=== PATIENT | male | born 1985 | race Caucasian/White ===

== ENCOUNTER 2020-06-28 13:28 | Inpatient (IN) | payer OTHER, MEDICAID, SELFPAY ==
[2020-06-28] VITALS (28 sets, daily range): BP systolic 125–182; BP diastolic 58–89; PULSE 97–131; RESP 14–29; TEMP 36.7–36.9; O2SAT 88–100; BMI 23.6; BMI 19.5
[2020-06-28] MEDS: SODIUM CHLORIDE 0.9% 1,000 ML 1000 ML IV (13:52)
--- NOTE | 2020-06-28 14:08 | ED.GENADULT ---
HPI - General Adult General Chief complaint: Diabetic Problem Stated complaint: Hyperglycemia Time Seen by Provider: 06/28/20 13:39 Source: patient and EMS Mode of arrival: EMS Limitations: no limitations History of Present Illness HPI narrative: Patient is a 34-year-old male who is a insulin-dependent diabetic. Has been a diabetic for 30 years. States he did not take his insulin yesterday. When asked why he stated ?I do not know ?and then he stated ?I think I lost it ?patient was unable/unwilling to provide much other HPI. Was vomiting. He kept stating ?what is wrong with me ?. When asked if he had chest pain he stated ?I do not know ?he answered that to most of the questions that I asked him. Related Data Previous Rx's Medication Instructions Recorded chlorhexidine gluconate 0.12 % 15 ml BUCCAL BID #118 ml 06/08/20 mouthwash Allergies Allergy/AdvReac Type Severity Reaction Status Date / Time Penicillins Allergy Severe Swelling Verified 06/08/20 17:11 and itching Review of Systems Review of Systems Narrative: Very limited review of systems secondary to patient's willingness to participate in the HPI. Constitutional Comments: Denies but this was limited ENT Comments: Denies but this is a limited exam Cardiovascular Cardiovascular: Denies chest pain and Denies dyspnea Respiratory Respiratory: Denies dyspnea Gastrointestinal Gastrointestinal: Reports nausea and Reports vomiting Musculoskeletal Comments: Body aches Integumentary/Breasts Comments: Denies but this is a limited exam Neurologic Neurologic: Reports confusion Psychiatric Psychiatric: Reports confusion Hematologic/Lymphatic On Anticoagulants: No Allergic/Immunologic Comments: Denies but this is limited Patient History Medical History Dental infection Diabetes Social History Smoking Status: Current every day smoker Smoking Status: Current every day smoker alcohol intake frequency: 3 or more drinks per day Substance Use Type: does not use Exam Initial Vital Signs Initial Vital Signs: Vital Signs Temperature 98.5 F 06/28/20 13:25 Pulse Rate 107 H 06/28/20 13:25 Respiratory Rate 24 06/28/20 13:25 Blood Pressure 138/74 06/28/20 13:25 Pulse Oximetry 99 06/28/20 13:25 Const General: No cooperative and other (Uncomfortable) Limitations: mental status not altered Other: Disheveled HENMT Head: normal to inspection and normocephalic Eyes General: appearance normal, both eyes and all related structures Chest Chest: No crepitus Resp Effort & Inspection: tachypneic Auscultation: clear to auscultation bilaterally Cardio Rate: tachycardic Rhythm: regular rhythm GI Inspection: non-distended Palpation: soft Skin Lesions: no lesions Rashes: no rashes Neuro General: patient alert, patient awake and moves all extremities Extrem General: normal to inspection, capillary refill normal and No edema Psych Appearance: grossly normal and well kempt Scores GCS [place] coma scale eye opening: Spontaneous [place] coma scale verbal response: Orientated Robert coma scale motor response: Obey commands [place] coma scale total score: 15 Course Orders Ordered: ED Orders 06/28/20 13:36 EKG-12 Lead Stat 06/28/20 14:07 Complete Blood Count AUTO DIFF Stat Comprehensive Metabolic Panel Stat Ethanol (ETOH) Stat Ketones (Beta-Hydroxybutyrate) Stat Magnesium Stat Phosphorous Stat 06/28/20 14:18 Venous Blood Gas Stat 06/28/20 14:22 COVID19 - ADMIT (PANTRY STEWARD/STEWARDESS swab/PCR) Stat 06/28/20 15:13 XR chest 1V Stat 06/28/20 18:02 Urine Drug Screen, Rapid Stat Acetaminophen (Acetaminophen 325 Mg Tablet) 650 mg PO Q6HR PRN PRN Reason: Fever/Mild Pain (1-3) Heparin Sodium (Porcine) (Heparin 5,000 Unit/Ml Vial) 5,000 unit SUBCUT BID SWETA INSULIN DRIP PREMIX (Myxredlin Drip Premix) 100 unit in 100 mls @ 7 mls/hr IV TITRATE SWETA; Protocol Last Admin: 06/28/20 15:32 Dose: 7 ml/hr, 7 mls/hr Documented by: [email or web address] Cosigned by: RICHARD Sodium Chloride (Normal Saline 0.9%) 1,000 mls @ 250 mls/hr IV CONT SWETA Last Admin: 06/28/20 16:24 Dose: 250 mls/hr Documented by: [email or web address] Sodium Chloride (Normal Saline 0.9%) 1,000 mls @ 250 mls/hr IV CONT SWETA Naloxone HCl (Naloxone 0.4 Mg/Ml Vial) 0.2 mg IV Q2MIN PRN PRN Reason: Opiate Reversal Ondansetron HCl (Ondansetron 4 Mg/2 Ml Inj) 4 mg IV Q8HR PRN PRN Reason: Nausea And Vomiting Discontinued Medications Sodium Chloride (Normal Saline 0.9%) 1,000 mls @ 1,000 mls/hr IV BOLUS ONE Stop: 06/28/20 14:39 Last Infusion: 06/28/20 15:23 Dose: 0 mls/hr Documented by: Admin: 06/28/20 13:52 Dose: 1,000 mls/hr Documented by: [email or web address] Lorazepam (Lorazepam 2 Mg/Ml Inj) 1 mg IV NOW ONE Stop: 06/28/20 14:27 Last Admin: 06/28/20 14:33 Dose: 1 mg Documented by: CTREACARMITA Ondansetron HCl (Ondansetron 4 Mg/2 Ml Inj) 4 mg IV NOW ONE Stop: 06/28/20 13:51 Last Admin: 06/28/20 13:53 Dose: Not Given Documented by: CTREACARMITA Ondansetron HCl (Ondansetron 4 Mg/2 Ml Inj) 4 mg IV NOW ONE Stop: 06/28/20 14:09 Last Admin: 06/28/20 14:13 Dose: 4 mg Documented by: BOOGIE Vital Signs Vital signs: Vital Signs - 8 hr 06/28/20 13:25 06/28/20 13:30 06/28/20 14:00 Temperature 98.5 F Pulse Rate 107 H 109 H 114 H Respiratory Rate 24 22 Blood Pressure 138/74 Pulse Oximetry 99 100 06/28/20 14:30 06/28/20 15:00 06/28/20 15:30 Temperature Pulse Rate 113 H 114 H 116 H Respiratory Rate 20 24 17 Blood Pressure Pulse Oximetry 06/28/20 16:00 06/28/20 16:11 Temperature Pulse Rate 114 H 116 H Respiratory Rate 28 H 17 Blood Pressure 170/80 H Pulse Oximetry Medical Decision Making Lab Data Lab results reviewed: Yes I reviewed the patient's lab results. Result diagrams: 06/28/20 14:07 06/28/20 17:21 Labs: Lab Results 06/28/20 06/28/20 06/28/20 Range/Units 14:07 14:07 14:07 WBC 20.4 H (4.5-11.0) X10^3/uL RBC 5.05 (4.5-5.9) X10^6/uL Hgb 16.3 (13.5-17.5) g/dL Hct 49.0 (41-53) % MCV 97.1 (80-100) fL MCH 32.3 (26-34) PG MCHC 33.3 (30-36) % RDW 13.1 (11.6-14.8) % Plt Count 544 H (150-400) X10^3/uL Neut % (Auto) 87.9 H (50-75) % Lymph % (Auto) 7.4 L (25-40) % [place] % (Auto) 4.1 (3-14) % Eos % (Auto) 0.0 L (2-4) % Baso % (Auto) 0.6 (0-2) % Neut # (Auto) 97364 H (9245-0127) /uL Lymph # (Auto) 1500 (7952-6553) /uL [place] # (Auto) 800 (0-900) /uL Eos # (Auto) 0 (0-450) /uL Baso # (Auto) 100 (0-100) /uL VBG pH (7.33-7.43) VBG pCO2 (45-50) mmHg VBG pO2 (35-45) mmHg VBG HCO3 (23-28) mmol/L VBG Total CO2 (24-29) mmol/L VBG O2 Saturation (70-75) % VBG Base Excess (0-4) mmol/L Sodium 122 L (137-145) mmol/L Potassium 5.9 H (3.4-5.1) mmol/L Chloride 81 L (98-107) mmol/L Carbon Dioxide 8 L* (22-32) mmol/L BUN 29 H (9-20) mg/dL Creatinine 1.27 H (0.66-1.25) mg/dL Estimated GFR > 60.0 (>60) mL/min BUN/Creatinine Ratio 22.8 H (6-22) Glucose 716 H* (70-100) mg/dL Calcium 9.4 (8.4-10.2) mg/dL Phosphorus 6.7 H (2.5-4.5) mg/dL Magnesium 2.1 (1.6-2.3) mg/dL Total Bilirubin 0.7 (0.2-1.3) mg/dL AST 36 (17-59) IU/L ALT 48 (<50) IU/L Alkaline Phosphatase 190 H (38-126) U/L Total Protein 7.4 (6.3-8.2) g/dL Albumin 4.4 (3.5-5.0) g/dL Globulin 3.0 (1.7-4.1) g/dL Albumin/Globulin Ratio 1.5 (1.0-2.8) Ethyl Alcohol < 10 ( - 10) mg/dL Ketones 14.00 H (<0.27) mmol/L SARS-CoV-2 (PCR) (Negative) 06/28/20 06/28/20 Range/Units 14:18 14:22 WBC (4.5-11.0) X10^3/uL RBC (4.5-5.9) X10^6/uL Hgb (13.5-17.5) g/dL Hct (41-53) % MCV (80-100) fL MCH (26-34) PG MCHC (30-36) % RDW (11.6-14.8) % Plt Count (150-400) X10^3/uL Neut % (Auto) (50-75) % Lymph % (Auto) (25-40) % [place] % (Auto) (3-14) % Eos % (Auto) (2-4) % Baso % (Auto) (0-2) % Neut # (Auto) (1729-7345) /uL Lymph # (Auto) (0076-4134) /uL [place] # (Auto) (0-900) /uL Eos # (Auto) (0-450) /uL Baso # (Auto) (0-100) /uL VBG pH 7.21 L (7.33-7.43) VBG pCO2 30.5 L (45-50) mmHg VBG pO2 54 H (35-45) mmHg VBG HCO3 12 L (23-28) mmol/L VBG Total CO2 13 L (24-29) mmol/L VBG O2 Saturation 81 H (70-75) % VBG Base Excess -16.0 L (0-4) mmol/L Sodium (137-145) mmol/L Potassium (3.4-5.1) mmol/L Chloride (98-107) mmol/L Carbon Dioxide (22-32) mmol/L BUN (9-20) mg/dL Creatinine (0.66-1.25) mg/dL Estimated GFR (>60) mL/min BUN/Creatinine Ratio (6-22) Glucose (70-100) mg/dL Calcium (8.4-10.2) mg/dL Phosphorus (2.5-4.5) mg/dL Magnesium (1.6-2.3) mg/dL Total Bilirubin (0.2-1.3) mg/dL AST (17-59) IU/L ALT (<50) IU/L Alkaline Phosphatase (38-126) U/L Total Protein (6.3-8.2) g/dL Albumin (3.5-5.0) g/dL Globulin (1.7-4.1) g/dL Albumin/Globulin Ratio (1.0-2.8) Ethyl Alcohol ( - 10) mg/dL Ketones (<0.27) mmol/L SARS-CoV-2 (PCR) Negative (Negative) Point of Care Testing Glucose POC 500 Point of care testing: Point of Care Testing Glucose POC 500 Imaging Data Chest x-ray: Radiologist's Impression: [address] [id number] ReportSigned Patient: Harpreet Hinds JMR#: [id number]: [id number]:[id number]/Sex: 34 / MDate of Service: 06/28/20Loc: EDAccession Number: [id number] Procedure: XR chest 1V Ordering Provider: Bandar Benoit D.O. PROCEDURE: XR CHEST 1V INDICATIONS: DKA eval for PNA TECHNIQUE: One view of the chest was acquired. COMPARISON: None. FINDINGS: Surgical changes and devices: None. Lungs and pleura: Lungs are clear. No pleural effusions or pneumothorax. Mediastinum: Mediastinal contours appear normal. Heart size is normal. Bones and chest wall: No suspicious bony lesions. Overlying soft tissues appear unremarkable. IMPRESSION: No acute cardiopulmonary disease process. Dictated by: Caren Bryant MD, PhD on 06/28/2020 at 16:36 Approved by: Caren Bryant MD, PhD on 06/28/2020 at 16:37 ECG Data Attestation: I personally reviewed and interpreted this ECG as follows: Prior ECG tracings: not available for review Interpretation: Sinus tachycardia Ventricular rate of 113 Normal axis Normal QRS Normal QTC No ST T wave changes MDM Narrative Medical decision making narrative: Patient is a diabetic. He stated that he has not taken his insulin in 24 hours. He thinks that he lost his medication. He is oriented to some questions but does not answer other questions. He is very disheveled. Unsure if his ability to answer questions is due to unwillingness rather than being unable to do so. He is in DKA. Has an anion gap of 33. Corrected sodium of 132. Potassium is in the range where we can start insulin. We was also given fluids. There is no signs of any infection. I suspect that his leukocytosis is secondary to indiscretion. Discussed the case with Dr. Clemens with Internal Medicine who will admit for further evaluation and treatment. Discussed admission with the patient. He expressed understanding. Critical Care Time Critical Care Time Critical Care Time: Yes Total Critical Care Time: 35 Attestation: The high probability of a clinically significant, sudden or life threatening deterioration of the endocrine system(s) required my full and direct attention, intervention and personal management. The aggregate critical care time was 35 minutes. This time is in addition to time spent performing reported procedures but includes the following: [X] Data Review and interpretation [X] Patient assessment and monitoring of vital signs [X] Documentation [X] Medication orders and management Discharge Plan Departure Patient Disposition: Admitted As Inpatient Clinical Impression: DKA (diabetic ketoacidoses) Admit Date/Time: 06/28/20 16:36 Admit Provider: Eldon Clemens
[2020-06-28] MEDS: ONDANSETRON 4 MG/2 ML INJ IV (14:13)
[2020-06-28] MEDS: ONDANSETRON 4 MG/2 ML INJ (14:14)
[2020-06-28 14:22] LABS: Add Manual Diff / Slide Review NO; Basophils Absolute Auto 100 /uL (0-100); Basophils Percent Auto 0.6 % (0-2); Eosinophils Absolute Auto 0 /uL (0-450); Hemoglobin 16.3 g/dL (13.5-17.5); Lymphocytes Absolute Auto 1500 /uL (1100-4500); Lymphocytes Percent Auto 7.4 % (25-40); Mean Corpuscular HGB Conc 33.3 % (30-36); Mean Corpuscular Hemoglobin 32.3 PG (26-34); Mean Corpuscular Volume 97.1 fL (80-100); Monocytes Absolute Auto 800 /uL (0-900); Monocytes Percent Auto 4.1 % (3-14); Neutrophils Absolute Auto 17900 /uL (1500-7000); Neutrophils Percent Auto 87.9 % (50-75); Platelet Count 544 X10^3/uL (150-400); Red Blood Cell Count 5.05 X10^6/uL (4.5-5.9); Red Cell Distribution Width 13.1 % (11.6-14.8); White Blood Cell Count 20.4 X10^3/uL (4.5-11.0)
[2020-06-28 14:28] LABS: HCO3 VBG 12 mmol/L (23-28); Oxygen Saturation VBG 81 % (70-75); PCO2 VBG 30.5 mmHg (45-50); PO2 VBG 54 mmHg (35-45); Total CO2 VBG 13 mmol/L (24-29); pH VBG 7.21 (7.33-7.43)
[2020-06-28] MEDS: LORazepam 2 MG/ML INJ 1 MG IV (14:33)
[2020-06-28 14:53] LABS: Ethanol (ETOH) < 10 mg/dL; Magnesium 2.1 mg/dL (1.6-2.3); Phosphorous 6.7 mg/dL (2.5-4.5)
[2020-06-28 14:54] LABS: HEMOLYSIS < 15 (0-50); Sodium 122 mmol/L (137-145)
[2020-06-28 14:55] LABS: Alanine Aminotransferase 48 IU/L (<50); Albumin 4.4 g/dL (3.5-5.0); Albumin Globulin Ratio 1.5 (1.0-2.8); Alkaline Phosphatase 190 U/L (38-126); Aspartate Aminotransferase 36 IU/L (17-59); BUN Creatinine Ratio 22.8 (6-22); Bilirubin Total 0.7 mg/dL (0.2-1.3); Blood Urea Nitrogen 29 mg/dL (9-20); Calcium 9.4 mg/dL (8.4-10.2); Chloride 81 mmol/L (98-107); Estimated Glomerular Filt Rate > 60.0 mL/min (>60); Total Protein 7.4 g/dL (6.3-8.2)
[2020-06-28 15:05] LABS: Potassium 5.9 mmol/L (3.4-5.1)
[2020-06-28 15:06] LABS: Glucose 716 mg/dL (70-100)
[2020-06-28 15:07] LABS: Carbon Dioxide 8 mmol/L (22-32)
--- NOTE | 2020-06-28 15:13 | DI.RAD.S_ITS ---
PROCEDURE: XR CHEST 1V INDICATIONS: DKA eval for PNA TECHNIQUE: One view of the chest was acquired. COMPARISON: None. FINDINGS: Surgical changes and devices: None. Lungs and pleura: Lungs are clear. No pleural effusions or pneumothorax. Mediastinum: Mediastinal contours appear normal. Heart size is normal. Bones and chest wall: No suspicious bony lesions. Overlying soft tissues appear unremarkable. IMPRESSION: No acute cardiopulmonary disease process. Dictated by: Caren Bryant MD, PhD on 06/28/2020 at 16:36 Approved by: Caren Bryant MD, PhD on 06/28/2020 at 16:37
[2020-06-28 15:21] LABS: COVID19 - ADMIT (NP swab/PCR) Negative (Negative)
[2020-06-28] MEDS: INSULIN DRIP PREMIX 100 UNIT/100 ML PLAST..BAG 7 UNIT IV ×3 (15:32→20:31)
[2020-06-28] MEDS: SODIUM CHLORIDE 0.9% 1,000 ML 250 ML IV ×2 (16:24→20:31)
[2020-06-28 17:42] LABS: BUN Creatinine Ratio 25.6 (6-22); Blood Urea Nitrogen 32 mg/dL (9-20); Calcium 8.6 mg/dL (8.4-10.2); Carbon Dioxide 10 mmol/L (22-32); Chloride 91 mmol/L (98-107); Estimated Glomerular Filt Rate > 60.0 mL/min (>60); HEMOLYSIS < 15 (0-50); Potassium 4.7 mmol/L (3.4-5.1); Sodium 129 mmol/L (137-145)
[2020-06-28 17:52] LABS: Glucose 554 mg/dL (70-100)
[2020-06-28 18:18] LABS: UR Morphine/Opiate cutoff 300 Negative (Negative); Ur Creatinine Normal (Normal); Ur Specific Gravity Normal (Normal); Urine Amphetamines Negative (Negative); Urine Barbiturates Negative (Negative); Urine Benzodiazepines Negative (Negative); Urine Cocaine Negative (Negative); Urine MDMA Negative (Negative); Urine Methadone Negative (Negative); Urine Methamphetamines Positive (Negative); Urine Oxycodone Negative (Negative); Urine Phencyclidine Negative (Negative); Urine Tetrahydrocannabinol Negative (Negative); Urine Tricyclic Antidepressant Negative (Negative); Urine pH Normal (Normal)
[2020-06-28] MEDS: POTASSIUM CHLORIDE IN WATER 10 MEQ/100 ML PIGGYBACK 100 MEQ IV ×2 (20:46→22:04)
--- NOTE | 2020-06-28 21:00 | PM.HP.1 ---
History of Present Illness History of Present Illness Date Patient Seen: 06/28/20 Time Patient Seen: 17:00 Chief complaint: Hypoglycemia Narrative: Mr. Hinds is a 34M with PMH of Type 1 diabetes. He does not relay any history to me, but he did tell ED physician that he did not take his insulin yesterday, but does not answer why he did not use it. He was not providing any other history. He was initially vomiting. He did not provide any further information to any provider. In the ED, he was noted to be tachycardic and tachypneic. Labs notable for WBC of 20.4. Blood sugar greater than 500, on chemistry in 700s. VBG showed pH of 7.21. Sodium 122, co2 8, creatinine 1.27. Ketones positive. Urine methamphetamines positive. He had a negative chest xray. He was started IV fluids and insulin drip and admitted for further treatment. Patient History Medical History Dental infection Diabetes Family & Social History Safety & Behavioral: Feels Safe in Current Yes Environment Been Physically Hurt or No Threatened By a Person Tobacco & Substance use: Smoking Status Current every day smoker alcohol intake frequency 3 or more drinks per day Substance Use Type does not use Meds Home Medications and Allergies Home Medications Medication Instructions Recorded Confirmed Type chlorhexidine gluconate 0.12 % 15 ml BUCCAL BID #118 ml 06/08/20 06/08/20 Rx mouthwash Allergies Allergy/AdvReac Type Severity Reaction Status Date / Time Penicillins Allergy Severe Swelling Verified 06/28/20 18:18 and itching Review of Systems Review of Systems Narrative: 14 systems attempted to be reviewed, patient did not answer questions Exam Vital Signs (past 8 hours): - 06/28/20 13:25 06/28/20 13:30 06/28/20 14:00 Temperature 98.5 F Pulse Rate 107 H 109 H 114 H Respiratory Rate 24 22 Blood Pressure 138/74 Pulse Oximetry 99 100 06/28/20 14:30 06/28/20 15:00 06/28/20 15:30 Temperature Pulse Rate 113 H 114 H 116 H Respiratory Rate 20 24 17 Blood Pressure Pulse Oximetry 06/28/20 16:00 06/28/20 16:11 06/28/20 16:30 Temperature Pulse Rate 114 H 116 H 114 H Respiratory Rate 28 H 17 20 Blood Pressure 170/80 H 163/86 H Pulse Oximetry 06/28/20 17:00 06/28/20 17:34 06/28/20 17:35 Temperature Pulse Rate 115 H 113 H 115 H Respiratory Rate 16 29 H Blood Pressure 160/87 H 142/89 H Pulse Oximetry 93 99 06/28/20 18:00 06/28/20 18:30 Temperature Pulse Rate 112 H 119 H Respiratory Rate 16 20 Blood Pressure 164/84 H 182/80 H Pulse Oximetry 88 L Oxygen Delivery Method Room Air Narrative Exam Narrative: GEN: lethargic, responds to quesion briefly if sternal rub HEENT: PERRL, dry mucous membranes CV: tachycardic, no murmurs PULM: clear bilaterally ABD: soft, nontender, nondistended, no organomegaly, normal bowel sounds SKIN: track [place] on arms EXT: warm and well perfused with no edema NEURO: lethargic, but moving all extremities PSYCH: irritable Objective Labs Result Diagrams: 06/28/20 14:07 06/28/20 17:21 Labs: Laboratory Results - last 24 hr 06/28/20 06/28/20 06/28/20 14:07 14:07 14:07 WBC 20.4 H RBC 5.05 Hgb 16.3 Hct 49.0 MCV 97.1 MCH 32.3 MCHC 33.3 RDW 13.1 Plt Count 544 H Neut % (Auto) 87.9 H Lymph % (Auto) 7.4 L [place] % (Auto) 4.1 Eos % (Auto) 0.0 L Baso % (Auto) 0.6 Neut # (Auto) 77372 H Lymph # (Auto) 1500 [place] # (Auto) 800 Eos # (Auto) 0 Baso # (Auto) 100 VBG pH VBG pCO2 VBG pO2 VBG HCO3 VBG Total CO2 VBG O2 Saturation VBG Base Excess Sodium 122 L Potassium 5.9 H Chloride 81 L Carbon Dioxide 8 L* BUN 29 H Creatinine 1.27 H Estimated GFR > 60.0 BUN/Creatinine Ratio 22.8 H Glucose 716 H* Calcium 9.4 Phosphorus 6.7 H Magnesium 2.1 Total Bilirubin 0.7 AST 36 ALT 48 Alkaline Phosphatase 190 H Total Protein 7.4 Albumin 4.4 Globulin 3.0 Albumin/Globulin Ratio 1.5 U Opiates 300ng/mL cut Ur Oxycodone Screen Urine Methadone Screen Ur Barbiturates Screen U Tricyclic Antidepress Ur Phencyclidine Scrn Ur Amphetamines Screen U Methamphetamines Scrn Ur MDMA Scrn (Ecstasy) U Benzodiazepines Scrn Urine Cocaine Screen U Marijuana (THC) Screen Ethyl Alcohol < 10 Ketones 14.00 H SARS-CoV-2 (PCR) 06/28/20 06/28/20 06/28/20 14:18 14:22 17:21 WBC RBC Hgb Hct MCV MCH MCHC RDW Plt Count Neut % (Auto) Lymph % (Auto) [place] % (Auto) Eos % (Auto) Baso % (Auto) Neut # (Auto) Lymph # (Auto) [place] # (Auto) Eos # (Auto) Baso # (Auto) VBG pH 7.21 L VBG pCO2 30.5 L VBG pO2 54 H VBG HCO3 12 L VBG Total CO2 13 L VBG O2 Saturation 81 H VBG Base Excess -16.0 L Sodium 129 L Potassium 4.7 D Chloride 91 L Carbon Dioxide 10 L BUN 32 H Creatinine 1.25 Estimated GFR > 60.0 BUN/Creatinine Ratio 25.6 H Glucose 554 H* Calcium 8.6 Phosphorus Magnesium Total Bilirubin AST ALT Alkaline Phosphatase Total Protein Albumin Globulin Albumin/Globulin Ratio U Opiates 300ng/mL cut Ur Oxycodone Screen Urine Methadone Screen Ur Barbiturates Screen U Tricyclic Antidepress Ur Phencyclidine Scrn Ur Amphetamines Screen U Methamphetamines Scrn Ur MDMA Scrn (Ecstasy) U Benzodiazepines Scrn Urine Cocaine Screen U Marijuana (THC) Screen Ethyl Alcohol Ketones SARS-CoV-2 (PCR) Negative 06/28/20 18:02 WBC RBC Hgb Hct MCV MCH MCHC RDW Plt Count Neut % (Auto) Lymph % (Auto) [place] % (Auto) Eos % (Auto) Baso % (Auto) Neut # (Auto) Lymph # (Auto) [place] # (Auto) Eos # (Auto) Baso # (Auto) VBG pH VBG pCO2 VBG pO2 VBG HCO3 VBG Total CO2 VBG O2 Saturation VBG Base Excess Sodium Potassium Chloride Carbon Dioxide BUN Creatinine Estimated GFR BUN/Creatinine Ratio Glucose Calcium Phosphorus Magnesium Total Bilirubin AST ALT Alkaline Phosphatase Total Protein Albumin Globulin Albumin/Globulin Ratio U Opiates 300ng/mL cut Negative Ur Oxycodone Screen Negative Urine Methadone Screen Negative Ur Barbiturates Screen Negative U Tricyclic Antidepress Negative Ur Phencyclidine Scrn Negative Ur Amphetamines Screen Negative U Methamphetamines Scrn Positive H Ur MDMA Scrn (Ecstasy) Negative U Benzodiazepines Scrn Negative Urine Cocaine Screen Negative U Marijuana (THC) Screen Negative Ethyl Alcohol Ketones SARS-CoV-2 (PCR) Assessment & Plan Assessment & Plan narrative: 1. Type 1 DM with DKA -has ketones in urine, anion gap greater than 30, vbg ph 7.2 -likely from nonadherence to diabetes medication -started on insulin drip and normal saline in ER -kept NPO while has anion gap -ordered for q4hr bmp and vbg -insulin, potassium, and dextrose are ordered per DKA protocol -rule out urinary infection as cause of dka, ua pending -initial na 122, improved to 129 with repletion, initial k 5.9 improved to 4.7 on recheck 2. Methamphetamines in urine -patient acknowledges using meth -does not state when last use was -likely the cause of his encephalopathy -will monitor for withdrawal closely 3. Leukocytosis -likely from dka -currently with no infectious symtoms, or fever -chest xray -urinalysis pending 4. Metabolic encephalopathy -etiology likely multifactorial -from substance use and dka -continue to monitor for clinical improvement Code status: presumed full, proxy listed as aunt marielos IVF: as above per DKA protocol DVT ppx: heparin Quality MIPS - Admit I confirm the patient?s Advance Care Plan is present, Code status is documented, Surrogate decision maker is in patient?s record [If Yes, STOP here]: Yes
[2020-06-28 21:24] LABS: HCO3 VBG 22 mmol/L (23-28); Oxygen Saturation VBG 95 % (70-75); PCO2 VBG 35.4 mmHg (45-50); PO2 VBG 75 mmHg (35-45); Total CO2 VBG 23 mmol/L (24-29); pH VBG 7.39 (7.33-7.43)
[2020-06-28] MEDS: DEXTROSE 5%-0.45% NS 1,000 ML 87.3 ML IV (21:25)
[2020-06-28 21:28] LABS: Magnesium 2.2 mg/dL (1.6-2.3); Phosphorous 2.6 mg/dL (2.5-4.5)
[2020-06-28 21:29] LABS: BUN Creatinine Ratio 29.7 (6-22); Blood Urea Nitrogen 30 mg/dL (9-20); Calcium 8.4 mg/dL (8.4-10.2); Carbon Dioxide 21 mmol/L (22-32); Chloride 100 mmol/L (98-107); Estimated Glomerular Filt Rate > 60.0 mL/min (>60); Glucose 281 mg/dL (70-100); HEMOLYSIS 18 (0-50); Potassium 4.5 mmol/L (3.4-5.1); Sodium 134 mmol/L (137-145)
[2020-06-28] MEDS: HEPARIN 5,000 UNIT/ML VIAL 5000 UNIT SUBCUT (22:04)
--- NOTE | 2020-06-28 23:07 | PC.NURSE ---
Admission Note: Pt arrives on insulin gtts, initially at 7 units/hr. Pt given 20 MEQ Kcl per MD order and NS at 250 for rehydration. BG checked hourly and insulin gtts titrated per protocol. Pt initially is mostly non-verbal, grunting and eye opening to light pain. Pt with RR and VS WNL. Pt became more easily awakened as shift went on and was able to say his name and thought he was in [place]. Pt tachycardic to 120-130. ST. Now HR 98-115. Pt arrives on RA, SPO2 98-100%. Denies SOB. Lungs CTA. Pt with large void at end of shift, 1300. Pt with nausea and emesis x1. Pt is currently NPO. Call light within reach. Bed alarm on and functioning.
[2020-06-29] VITALS (24 sets, daily range): BP systolic 121–154; BP diastolic 56–79; PULSE 70–108; RESP 13–25; TEMP 36.6–36.9; O2SAT 96–99; BMI 19.5
[2020-06-29 00:01] LABS: Bacteria Urine None Seen; WBC Urine None Seen (0-5/HPF)
[2020-06-29 00:03] LABS: Appearance Urine UA CLEAR; Bilirubin Urine UA NEGATIVE (NEGATIVE); Color Urine UA YELLOW; Glucose Urine UA 2+ g/dL (Negative); Ketones Urine UA 3+ (NEGATIVE); Leukocyte Esterase Urine UA NEGATIVE (NEGATIVE); Nitrite Urine UA NEGATIVE (Negative); Occult Blood Urine UA TRACE-INTACT (Negative); Protein Urine UA NEGATIVE (Negative); Specific Gravity Urine UA 1.025 (1.000-1.035); Urobilinogen Urine UA 0.2 E.U./dL (0.2)
[2020-06-29 00:15] LABS: Culture Indicated Urine Cult Not Indicated; RBC Urine 0-1/HPF (0-5/HPF)
[2020-06-29 01:44] LABS: BUN Creatinine Ratio 31.4 (6-22); Blood Urea Nitrogen 27 mg/dL (9-20); Calcium 7.8 mg/dL (8.4-10.2); Carbon Dioxide 27 mmol/L (22-32); Chloride 103 mmol/L (98-107); Estimated Glomerular Filt Rate > 60.0 mL/min (>60); Glucose 143 mg/dL (70-100); HEMOLYSIS < 15 (0-50); Magnesium 2.1 mg/dL (1.6-2.3); Phosphorous 2.9 mg/dL (2.5-4.5); Sodium 136 mmol/L (137-145)
[2020-06-29] MEDS: POTASSIUM CHLORIDE IN WATER 10 MEQ/100 ML PIGGYBACK 100 MEQ IV ×2 (02:34→03:44)
--- NOTE | 2020-06-29 06:02 | PC.NURSE ---
[employer] Teacher Note-Patient has been sleeping and mostly non-verbal throughout the night except during lab draws, becomes angry, cursing at staff. Insulin gtt infusing per DKA protocol, starting at 4.6units/hr at midnight, titrated down to 1.2units/hr by am, see flow sheet. IVF now D5 1/2NS @ 125ml/hr per MD order, K+ riders infused per protocol. SR in am, denies nausea.
[2020-06-29 06:07] LABS: Add Manual Diff / Slide Review NO; Basophils Absolute Auto 0 /uL (0-100); Basophils Percent Auto 0.3 % (0-2); Eosinophils Absolute Auto 0 /uL (0-450); Eosinophils Percent Auto 0.2 % (2-4); Hematocrit 41.4 % (41-53); Hemoglobin 14.3 g/dL (13.5-17.5); Lymphocytes Absolute Auto 2300 /uL (1100-4500); Mean Corpuscular HGB Conc 34.5 % (30-36); Mean Corpuscular Hemoglobin 31.9 PG (26-34); Mean Corpuscular Volume 92.5 fL (80-100); Monocytes Absolute Auto 1000 /uL (0-900); Monocytes Percent Auto 6.8 % (3-14); Neutrophils Absolute Auto 11800 /uL (1500-7000); Neutrophils Percent Auto 77.7 % (50-75); Platelet Count 414 X10^3/uL (150-400); Red Blood Cell Count 4.48 X10^6/uL (4.5-5.9); White Blood Cell Count 15.1 X10^3/uL (4.5-11.0)
[2020-06-29 06:14] LABS: Phosphorous 2.8 mg/dL (2.5-4.5)
[2020-06-29 06:15] LABS: BUN Creatinine Ratio 30.9 (6-22); Blood Urea Nitrogen 25 mg/dL (9-20); Calcium 7.7 mg/dL (8.4-10.2); Carbon Dioxide 26 mmol/L (22-32); Chloride 103 mmol/L (98-107); Estimated Glomerular Filt Rate > 60.0 mL/min (>60); Glucose 128 mg/dL (70-100); HEMOLYSIS 18 (0-50); Potassium 4.2 mmol/L (3.4-5.1); Sodium 135 mmol/L (137-145)
[2020-06-29] MEDS: INSULIN GLARGINE 100 UNIT/ML 3ML PEN 15 UNIT SUBCUT (08:42)
[2020-06-29] MEDS: INSULIN LISPRO 100 UNIT/ML 3ML VIAL SUBCUT ×2 (12:13)
--- NOTE | 2020-06-29 13:31 | P.PN_ITS ---
Subjective Subjective Date Patient Seen: 06/29/20 Time Patient Seen: 07:32 Interval history: Today he continues to respond selectively to questions. He is intelligeble and clearly understands, but at times decides not to answer questions Exam Vital Signs (past 8 hours): - 06/29/20 06:00 06/29/20 06:45 06/29/20 07:00 Temperature 97.8 F Pulse Rate 70 76 74 Respiratory Rate 19 15 13 Blood Pressure 154/79 H 151/75 H Pulse Oximetry 06/29/20 07:45 06/29/20 08:00 06/29/20 08:45 Temperature Pulse Rate 92 H 102 H 87 Respiratory Rate 18 21 21 Blood Pressure 125/68 Pulse Oximetry 98 06/29/20 09:00 06/29/20 09:01 06/29/20 12:01 Temperature 98.4 F Pulse Rate 85 81 102 H Respiratory Rate 16 13 21 Blood Pressure 121/59 L 128/73 Pulse Oximetry 98 Oxygen Delivery Method Room Air Oxygen Flow Rate 0 Narrative Exam Narrative: GEN: no acute distress HEENT: PERRL CV: tachycardic, no murmurs PULM: clear bilaterally ABD: soft, nontender, nondistended, no organomegaly, normal bowel sounds SKIN: track santo on arms EXT: warm and well perfused with no edema NEURO: moving all extremities, not participating in exam PSYCH: irritable, selective participation and response to questions, but he arouses when he wants to Objective Labs Result Diagrams: 06/29/20 05:55 06/29/20 05:55 Labs: Laboratory Results - last 24 hr 06/28/20 06/28/20 06/28/20 10:15 14:07 14:07 WBC 20.4 H RBC 5.05 Hgb 16.3 Hct 49.0 MCV 97.1 MCH 32.3 MCHC 33.3 RDW 13.1 Plt Count 544 H Neut % (Auto) 87.9 H Lymph % (Auto) 7.4 L Davison % (Auto) 4.1 Eos % (Auto) 0.0 L Baso % (Auto) 0.6 Neut # (Auto) 45794 H Lymph # (Auto) 1500 Davison # (Auto) 800 Eos # (Auto) 0 Baso # (Auto) 100 VBG pH VBG pCO2 VBG pO2 VBG HCO3 VBG Total CO2 VBG O2 Saturation VBG Base Excess Sodium 122 L Potassium 5.9 H Chloride 81 L Carbon Dioxide 8 L* BUN 29 H Creatinine 1.27 H Estimated GFR > 60.0 BUN/Creatinine Ratio 22.8 H Glucose 716 H* Calcium 9.4 Phosphorus Magnesium Total Bilirubin 0.7 AST 36 ALT 48 Alkaline Phosphatase 190 H Total Protein 7.4 Albumin 4.4 Globulin 3.0 Albumin/Globulin Ratio 1.5 Urine Color Urine Appearance Urine pH Ur Specific Brooks Urine Protein Urine Glucose (UA) Urine Ketones Urine Occult Blood Urine Nitrate Urine Bilirubin Urine Urobilinogen Ur Leukocyte Esterase Urine RBC Urine WBC Urine Bacteria Ur Culture Indicated? Nasal Screen MRSA (PCR) Negative for mrsa U Opiates 300ng/mL cut Ur Oxycodone Screen Urine Methadone Screen Ur Barbiturates Screen U Tricyclic Antidepress Ur Phencyclidine Scrn Ur Amphetamines Screen U Methamphetamines Scrn Ur MDMA Scrn (Ecstasy) U Benzodiazepines Scrn Urine Cocaine Screen U Marijuana (THC) Screen Ethyl Alcohol Ketones SARS-CoV-2 (PCR) 06/28/20 06/28/20 06/28/20 14:07 14:18 14:22 WBC RBC Hgb Hct MCV MCH MCHC RDW Plt Count Neut % (Auto) Lymph % (Auto) Davison % (Auto) Eos % (Auto) Baso % (Auto) Neut # (Auto) Lymph # (Auto) Davison # (Auto) Eos # (Auto) Baso # (Auto) VBG pH 7.21 L VBG pCO2 30.5 L VBG pO2 54 H VBG HCO3 12 L VBG Total CO2 13 L VBG O2 Saturation 81 H VBG Base Excess -16.0 L Sodium Potassium Chloride Carbon Dioxide BUN Creatinine Estimated GFR BUN/Creatinine Ratio Glucose Calcium Phosphorus 6.7 H Magnesium 2.1 Total Bilirubin AST ALT Alkaline Phosphatase Total Protein Albumin Globulin Albumin/Globulin Ratio Urine Color Urine Appearance Urine pH Ur Specific Brooks Urine Protein Urine Glucose (UA) Urine Ketones Urine Occult Blood Urine Nitrate Urine Bilirubin Urine Urobilinogen Ur Leukocyte Esterase Urine RBC Urine WBC Urine Bacteria Ur Culture Indicated? Nasal Screen MRSA (PCR) U Opiates 300ng/mL cut Ur Oxycodone Screen Urine Methadone Screen Ur Barbiturates Screen U Tricyclic Antidepress Ur Phencyclidine Scrn Ur Amphetamines Screen U Methamphetamines Scrn Ur MDMA Scrn (Ecstasy) U Benzodiazepines Scrn Urine Cocaine Screen U Marijuana (THC) Screen Ethyl Alcohol < 10 Ketones 14.00 H SARS-CoV-2 (PCR) Negative 06/28/20 06/28/20 06/28/20 17:21 17:35 18:02 WBC RBC Hgb Hct MCV MCH MCHC RDW Plt Count Neut % (Auto) Lymph % (Auto) Davison % (Auto) Eos % (Auto) Baso % (Auto) Neut # (Auto) Lymph # (Auto) Davison # (Auto) Eos # (Auto) Baso # (Auto) VBG pH VBG pCO2 VBG pO2 VBG HCO3 VBG Total CO2 VBG O2 Saturation VBG Base Excess Sodium 129 L Potassium 4.7 D Chloride 91 L Carbon Dioxide 10 L BUN 32 H Creatinine 1.25 Estimated GFR > 60.0 BUN/Creatinine Ratio 25.6 H Glucose 554 H* Calcium 8.6 Phosphorus Magnesium Total Bilirubin AST ALT Alkaline Phosphatase Total Protein Albumin Globulin Albumin/Globulin Ratio Urine Color Yellow Urine Appearance Clear Urine pH 5.0 Ur Specific Brooks 1.025 Urine Protein Negative Urine Glucose (UA) 2+ H Urine Ketones 3+ H Urine Occult Blood Trace-intact Urine Nitrate Negative Urine Bilirubin Negative Urine Urobilinogen 0.2 Ur Leukocyte Esterase Negative Urine RBC 0-1/hpf Urine WBC None seen Urine Bacteria None seen Ur Culture Indicated? Cult not indicated Nasal Screen MRSA (PCR) U Opiates 300ng/mL cut Negative Ur Oxycodone Screen Negative Urine Methadone Screen Negative Ur Barbiturates Screen Negative U Tricyclic Antidepress Negative Ur Phencyclidine Scrn Negative Ur Amphetamines Screen Negative U Methamphetamines Scrn Positive H Ur MDMA Scrn (Ecstasy) Negative U Benzodiazepines Scrn Negative Urine Cocaine Screen Negative U Marijuana (THC) Screen Negative Ethyl Alcohol Ketones SARS-CoV-2 (PCR) 06/28/20 06/28/20 06/28/20 20:59 20:59 20:59 WBC RBC Hgb Hct MCV MCH MCHC RDW Plt Count Neut % (Auto) Lymph % (Auto) Davison % (Auto) Eos % (Auto) Baso % (Auto) Neut # (Auto) Lymph # (Auto) Davison # (Auto) Eos # (Auto) Baso # (Auto) VBG pH 7.39 VBG pCO2 35.4 L VBG pO2 75 H VBG HCO3 22 L VBG Total CO2 23 L VBG O2 Saturation 95 H VBG Base Excess -3.0 L Sodium 134 L Potassium 4.5 Chloride 100 Carbon Dioxide 21 L BUN 30 H Creatinine 1.01 Estimated GFR > 60.0 BUN/Creatinine Ratio 29.7 H Glucose 281 H D Calcium 8.4 Phosphorus 2.6 D Magnesium 2.2 Total Bilirubin AST ALT Alkaline Phosphatase Total Protein Albumin Globulin Albumin/Globulin Ratio Urine Color Urine Appearance Urine pH Ur Specific Brooks Urine Protein Urine Glucose (UA) Urine Ketones Urine Occult Blood Urine Nitrate Urine Bilirubin Urine Urobilinogen Ur Leukocyte Esterase Urine RBC Urine WBC Urine Bacteria Ur Culture Indicated? Nasal Screen MRSA (PCR) U Opiates 300ng/mL cut Ur Oxycodone Screen Urine Methadone Screen Ur Barbiturates Screen U Tricyclic Antidepress Ur Phencyclidine Scrn Ur Amphetamines Screen U Methamphetamines Scrn Ur MDMA Scrn (Ecstasy) U Benzodiazepines Scrn Urine Cocaine Screen U Marijuana (THC) Screen Ethyl Alcohol Ketones SARS-CoV-2 (PCR) 06/29/20 06/29/20 06/29/20 01:25 05:55 05:55 WBC 15.1 H RBC 4.48 L Hgb 14.3 Hct 41.4 MCV 92.5 D MCH 31.9 MCHC 34.5 RDW 13.0 Plt Count 414 H Neut % (Auto) 77.7 H Lymph % (Auto) 15.0 L Davison % (Auto) 6.8 Eos % (Auto) 0.2 L Baso % (Auto) 0.3 Neut # (Auto) 69080 H Lymph # (Auto) 2300 Davison # (Auto) 1000 H Eos # (Auto) 0 Baso # (Auto) 0 VBG pH VBG pCO2 VBG pO2 VBG HCO3 VBG Total CO2 VBG O2 Saturation VBG Base Excess Sodium 136 L 135 L Potassium 4.0 4.2 Chloride 103 103 Carbon Dioxide 27 26 BUN 27 H 25 H Creatinine 0.86 0.81 Estimated GFR > 60.0 > 60.0 BUN/Creatinine Ratio 31.4 H 30.9 H Glucose 143 H D 128 H Calcium 7.8 L 7.7 L Phosphorus 2.9 Magnesium 2.1 Total Bilirubin AST ALT Alkaline Phosphatase Total Protein Albumin Globulin Albumin/Globulin Ratio Urine Color Urine Appearance Urine pH Ur Specific Brooks Urine Protein Urine Glucose (UA) Urine Ketones Urine Occult Blood Urine Nitrate Urine Bilirubin Urine Urobilinogen Ur Leukocyte Esterase Urine RBC Urine WBC Urine Bacteria Ur Culture Indicated? Nasal Screen MRSA (PCR) U Opiates 300ng/mL cut Ur Oxycodone Screen Urine Methadone Screen Ur Barbiturates Screen U Tricyclic Antidepress Ur Phencyclidine Scrn Ur Amphetamines Screen U Methamphetamines Scrn Ur MDMA Scrn (Ecstasy) U Benzodiazepines Scrn Urine Cocaine Screen U Marijuana (THC) Screen Ethyl Alcohol Ketones SARS-CoV-2 (PCR) 06/29/20 06/29/20 05:55 05:55 WBC RBC Hgb Hct MCV MCH MCHC RDW Plt Count Neut % (Auto) Lymph % (Auto) Davison % (Auto) Eos % (Auto) Baso % (Auto) Neut # (Auto) Lymph # (Auto) Davison # (Auto) Eos # (Auto) Baso # (Auto) VBG pH VBG pCO2 VBG pO2 VBG HCO3 VBG Total CO2 VBG O2 Saturation VBG Base Excess Sodium Potassium Chloride Carbon Dioxide BUN Creatinine Estimated GFR BUN/Creatinine Ratio Glucose Calcium Phosphorus 2.8 Magnesium 2.0 Total Bilirubin AST ALT Alkaline Phosphatase Total Protein Albumin Globulin Albumin/Globulin Ratio Urine Color Urine Appearance Urine pH Ur Specific Brooks Urine Protein Urine Glucose (UA) Urine Ketones Urine Occult Blood Urine Nitrate Urine Bilirubin Urine Urobilinogen Ur Leukocyte Esterase Urine RBC Urine WBC Urine Bacteria Ur Culture Indicated? Nasal Screen MRSA (PCR) U Opiates 300ng/mL cut Ur Oxycodone Screen Urine Methadone Screen Ur Barbiturates Screen U Tricyclic Antidepress Ur Phencyclidine Scrn Ur Amphetamines Screen U Methamphetamines Scrn Ur MDMA Scrn (Ecstasy) U Benzodiazepines Scrn Urine Cocaine Screen U Marijuana (THC) Screen Ethyl Alcohol Ketones SARS-CoV-2 (PCR) PFSH Medical History Dental infection Diabetes Social History Smoking Status: Current every day smoker Assessment & Plan Assessment & Plan narrative: Mr. Hinds is a type 1 diabetic who stopped taking his insulin for unclear reasons and presented to the hospital with enceph alopathy found to be in DKA 1. Type 1 DM with DKA -initial blood sugar in 700s -has ketones in urine, anion gap greater than 30, vbg ph 7.2 -likely from nonadherence to diabetes medication -started on insulin drip and normal saline in ER -kept NPO while has anion gap, ordered for q4hr bmp and vbg -insulin, potassium, and dextrose are ordered per DKA protocol -morning of 06/29 anion gap closed, switched to 15U lantus daily, 5U TID prandial, and sliding scale -ruledout urinary infection as cause of dka 2. Methamphetamines in urine -patient acknowledges using meth on first day, and now denies -does not state when last use was -likely the cause of his encephalopathy -will monitor for withdrawal closely 3. Leukocytosis -likely from dka -currently with no infectious symtoms, or fever -chest xray, urinalysis negative -WBC improving from 20s to 15 4. Metabolic encephalopathy -etiology likely multifactorial -from substance use and dka -continue to monitor for clinical improvement 5. History of dental infection -patient states he finished his antibiotics -does not participate in dental exam Code status: presumed full, proxy listed as aunt marielos IVF: as above per DKA protocol DVT ppx: heparin
--- NOTE | 2020-06-29 14:39 | PC.NURSE ---
Day Shift Note Pt very drowsy and somnolent this shift, does awaken to voice and is able to make needs known and answer questions. Declines assessment of teeth at this time. SBA to bathroom, voided once this shift. Insulin gtt and IVF d/c'd at 0940, 1 hour after Lantus administration per MD order. Denies any pain, denies nausea. BMP to be drawn at 1500. Bed alarm on. Call light within reach.
[2020-06-29 15:36] LABS: BUN Creatinine Ratio 33.8 (6-22); Blood Urea Nitrogen 22 mg/dL (9-20); Calcium 8.2 mg/dL (8.4-10.2); Carbon Dioxide 28 mmol/L (22-32); Chloride 95 mmol/L (98-107); Estimated Glomerular Filt Rate > 60.0 mL/min (>60); Glucose 275 mg/dL (70-100); HEMOLYSIS 16 (0-50); Potassium 3.9 mmol/L (3.4-5.1); Sodium 127 mmol/L (137-145)
--- NOTE | 2020-06-29 16:10 | CM.DANOTE ---
Discharge Planning/Care Management DCP: assessment: case received, EMR reviewed. Discussed case briefly outside of room during Team Rounds. At that time pt appeared to be sleeping deeply. Later in the morning he could be heard very loudy on the unit yelling and cursing at staff. Dr. Clemens stated he would need to do some do some research on the case before he could discuss POC. Pt is a 34 year old male who admitted yesterday late afternoon to care of hospitalist team. Review of history shows he had a New Patient visit 06/08/20 with Gina Blum:PAC: [facility] with c/o of dental infection. Pt has had had Insulin Dependent diabetes with dx reportedly at at age 4. Payer [facility] Medicaid Admission status: INPT: Confirmed by [facility]. DCP team will be following. May consider consulting BROADCAST PRODUCER team if CD assessment is needed. CM Discharge Assessment Start: 06/29/20 16:07 Freq: Status: Active Protocol: Document 06/29/20 16:08 ITV (Rec: 06/29/20 16:08 ITV [id number]) Discharge Planning Assessment Advance Directives? No History Provided By Medical Record Independent with ADL's Yes Is patient alert and oriented? Yes
[2020-06-29] MEDS: INSULIN DRIP PREMIX 100 UNIT/100 ML PLAST..BAG 6 UNIT IV (17:32)
[2020-06-29] MEDS: SODIUM CHLORIDE 0.9% 1,000 ML 250 ML IV ×3 (17:34→21:27)
[2020-06-29 21:23] LABS: BUN Creatinine Ratio 28.6 (6-22); Blood Urea Nitrogen 20 mg/dL (9-20); Calcium 7.7 mg/dL (8.4-10.2); Carbon Dioxide 32 mmol/L (22-32); Chloride 98 mmol/L (98-107); Estimated Glomerular Filt Rate > 60.0 mL/min (>60); Glucose 181 mg/dL (70-100); HEMOLYSIS 34 (0-50); Potassium 3.9 mmol/L (3.4-5.1); Sodium 132 mmol/L (137-145)
--- NOTE | 2020-06-29 22:30 | PC.NURSE ---
Evening shift note: Pt somnolent and drowsy, able to make needs known, answers questions, but becomes very aggravated when he doesn't get what he wants. SBA to bathroom, has had multiple trips to bathroom. Insulin gtt restarted due to FSBG of 335, per provider verbal order start NS @250 ml/hr, titrate insulin per protocol, do not change fluid orders, pt able to eat clear liquids per provider. Earlier during shift pt was very upset and threatened to leave AMA due to being told he was NPO, Dr. Clemens came and talked to patient and agreed that he could eat clear liquids (jello and broth), pt agreeable to this. Per provider titrate insulin (or hold insulin) based on FSBG, and he will re-evaluate in the am. Bed low and locked, call light within reach, will continue to monitor.
[2020-06-30] MEDS: SODIUM CHLORIDE 0.9% 1,000 ML 250 ML IV ×2 (01:29→05:20)
[2020-06-30 04:30] VITALS: BP 121/71; PULSE 91; RESP 20; TEMP 36.6; O2SAT 98
[2020-06-30 04:47] LABS: Hematocrit 37.3 % (41-53); Hemoglobin 12.8 g/dL (13.5-17.5); Mean Corpuscular HGB Conc 34.3 % (30-36); Mean Corpuscular Volume 93.1 fL (80-100); Platelet Count 321 X10^3/uL (150-400); Red Cell Distribution Width 13.1 % (11.6-14.8); White Blood Cell Count 8.2 X10^3/uL (4.5-11.0)
[2020-06-30 04:57] LABS: BUN Creatinine Ratio 23.7 (6-22); Blood Urea Nitrogen 14 mg/dL (9-20); Calcium 7.4 mg/dL (8.4-10.2); Carbon Dioxide 30 mmol/L (22-32); Chloride 100 mmol/L (98-107); Estimated Glomerular Filt Rate > 60.0 mL/min (>60); Glucose 159 mg/dL (70-100); HEMOLYSIS < 15 (0-50); Potassium 3.7 mmol/L (3.4-5.1); Sodium 131 mmol/L (137-145)
--- NOTE | 2020-06-30 06:05 | PC.NURSE ---
Sound System Installer Note-Patient is now A/Ox4, mood is labile. He was cooperative with Q1h CBG until 429 when lab draws due, then he became angry and hostile, saying I can walk outta here any time I want to Refusing any other CBGs or care afterward, says Get out of here and leave me alone when ever staff enters room. NS @ 250ml/hr infused throughout the night, insulin titrated as ordered. PO intake 1000ml or > of clear liquid without N/V, had 1 large unmeasured void in toilet.
[2020-06-30 08:00] VITALS: BP 115/72; PULSE 81; RESP 18; TEMP 36.3; O2SAT 98
[2020-06-30] MEDS: INSULIN GLARGINE 100 UNIT/ML 3ML PEN 40 UNIT SUBCUT (08:01)
[2020-06-30] MEDS: INSULIN LISPRO 100 UNIT/ML 3ML VIAL 16 UNIT SUBCUT (08:01)
[2020-06-30] MEDS: POTASSIUM CHLORIDE 20 MEQ TAB 40 MEQ PO (08:01)
--- NOTE | 2020-06-30 08:29 | PM.DS.1 ---
History of Present Illness History of Present Illness Chief complaint: Hypoglycemia Narrative: Mr. Hinds is a 34M with PMH of Type 1 diabetes. He does not relay any history to me, but he did tell ED physician that he did not take his insulin yesterday, but does not answer why he did not use it. He was not providing any other history. He was initially vomiting. He did not provide any further information to any provider. In the ED, he was noted to be tachycardic and tachypneic. Labs notable for WBC of 20.4. Blood sugar greater than 500, on chemistry in 700s. VBG showed pH of 7.21. Sodium 122, co2 8, creatinine 1.27. Ketones positive. Urine methamphetamines positive. He had a negative chest xray. He was started IV fluids and insulin drip and admitted for further treatment. Discharge Providers Provider Date of admission: 06/28/20 16:36 Discharge Date: 06/30/20 Primary care physician: Doctor Jayde MD Discharge provider: Eldon Clemens MD Summary Hospital Course Discharge Diagnosis: 1. Type 1 Diabetes with DKA 2. Methamphetamines in urine 3. Leukocytosis 4. Metabolic encephalopathy from DKA vs methamphetamines 5. Recent dental infection Hospital Course: Mr. Hinds was admitted to the hospital with DKA. He had evidence of infection. He stated he stopped his medications, but he was vague about why he stopped his insulin. He states he did not run out of his medications. He was started on insulin drip per DKA protocol and improved greatly, but demanded to eat and was often not participating in his care. On day of discharge his blood sugars became better controlled and he was switched to his home insulin of 40U lantus daily, with 16U prandial, along with sliding scale. He then demanded to leave immediately and was discharged. As patient was initially significantly altered urine drug screen was ordered which showed methamphetamines in his urine. He initially said he had used meth, but upon reasking denied this. He had recent dental infection, and declined mouth exam to see if antibiotics improved his infection. Exam Vital Signs (past 8 hours): Oxygen Delivery Method Room Air Oxygen Flow Rate 0 Narrative Exam Narrative: GEN: no acute distress HEENT: PERRL, moist mucous membranes CV: RRR, no murmurs PULM: clear bilaterally ABD: soft, nontender, nondistended, no organomegaly, normal bowel sounds SKIN: track santo on arms EXT: warm and well perfused with no edema NEURO: moving all extremities, not participating in exam PSYCH: irritable, selective participation and response to questions, but he arouses when he wants to Objective Labs Result Diagrams: 06/30/20 04:30 06/30/20 04:30 Labs: Laboratory Results - last 24 hr 06/30/20 06/30/20 04:30 04:30 WBC 8.2 RBC 4.00 L Hgb 12.8 L Hct 37.3 L MCV 93.1 MCH 32.0 MCHC 34.3 RDW 13.1 Plt Count 321 Sodium 131 L Potassium 3.7 Chloride 100 Carbon Dioxide 30 BUN 14 Creatinine 0.59 L Estimated GFR > 60.0 BUN/Creatinine Ratio 23.7 H Glucose 159 H Calcium 7.4 L PFSH Medical History Dental infection Diabetes Social History Smoking Status: Current every day smoker Discharge Plan Discharge Plan Patient Disposition: Home Provider Discharge Comment: Mr. Hinds you were admitted with dangerously high blood sugars over 700. You had a life threatening condition called DKA (diabetic ketoacidosis). This happens if you don't take your insulin. Please make sure to not skip insulin. Please follow up closely with a primary doctor in the next few days. Discharge orders & Medications Prescriptions: Continued insulin lispro [Humalog KwikPen Insulin] 100 unit/mL Insulin Pen 0 unit SUBCUT AC RF: 0 insulin lispro [Humalog KwikPen Insulin] 100 unit/mL Insulin Pen 16 unit SUBCUT AC Qty: 15 RF: 0 Lantus Solostar U-100 Insulin 100 unit/mL (3 mL) Insulin Pen 40 unit SUBCUT QPM Qty: 15 RF: 0 Follow up/Referrals: Doctor Donohue MD [Primary Care Provider] - Diet/Activity/Treatments Diet: Carb-consistent/Diabetic Visit Report/Discharge Packet Instructions: DI for Diabetic Ketoacidosis, Insulin Glargine (rDNA origin) Injection Discharge Data Primary Care Provider: Doctor Jayde Quality MIPS - DC The patient has current or prior documentation of left ventricular ejection fraction (LVEF) less than 40%, or moderate or severely depressed left ventricular systolic function.: No
== END 2020-06-30 12:26 | disposition home or self-care (01) | DRG 420 ==
LOC: ED 15:40 → AC 16:38 → ICU 06-29 07:40
PROVIDERS: Admitting Provider Internal Medicine; Emergency Provider Emergency Medicine; Referring Provider Emergency Medicine; Visit Provider Internal Medicine
DX: E10.10 Type 1 diabetes mellitus with ketoacidosis without coma (principal); G93.41 Metabolic encephalopathy; F15.90 Other stimulant use, unspecified, uncomplicated; F17.210 Nicotine dependence, cigarettes, uncomplicated; Z91.14 Patient's other noncompliance with medication regimen; Z20.822 Contact with and (suspected) exposure to COVID-19
CPT/HCPCS: 36415; 71045; 80048; 80053; 80305; 80320; 81001; 82009; 82805; 82962; 83735; 84100; 85025; 85027; 87635; 87797; 93005; 96361; 96365; 96366; 96375; 99284; 99291; C9803; J1644; J1815; J2060; J2405